=== PATIENT | female | born 1960 | race Hispanic/Latino ===

== ENCOUNTER 2018-01-11 07:22 | Day surgery (SDC) | payer BC ==
[2018-01-04 09:41] VITALS: BMI 21.2
[2018-01-11] MEDS ORDERED: Sodium Chloride 0.9% 1,000 ML IV SCH (08:15)
[2018-01-11] MEDS ORDERED: Propofol 10 mg/ml Inj (20 ML) ONE ×2 (08:51→09:21)
[2018-01-11 10:43] VITALS: BP 101/59; PULSE 53; RESP 18; TEMP 98.4; O2SAT 100
== END 2018-01-11 11:26 | disposition home or self-care (01) ==
LOC: ENDO 07:22
PROVIDERS: ATTEND Specialist
DX: Z12.11 Encounter for screening for malignant neoplasm of colon (principal); D12.5 Benign neoplasm of sigmoid colon; K62.1 Rectal polyp; K57.30 Diverticulosis of large intestine without perforation or abscess without bleeding; K64.8 Other hemorrhoids; E03.9 Hypothyroidism, unspecified; G80.9 Cerebral palsy, unspecified; Z86.010 Personal history of colon polyps; Z80.0 Family history of malignant neoplasm of digestive organs
CPT/HCPCS: 45380; 88305; J2704; J7040